=== PATIENT | female | born 1965 | race Caucasian/White ===

== ENCOUNTER 2018-09-25 10:42 | Emergency (ER) | payer BC ==
--- NOTE | 2018-09-25 11:13 | UC ---
Hip/Pelvis Pain - HPI Summary HPI Summary: 52 yo fell from horse 2 days ago; complains of right lateral hip discomfort. ALSO: felt faint and nauseated that evening; near syncopal episode. Could still hear family talking to her but felt as if blood was "leaving head." When fell hit head slightly but was wearing a helmet. No previous history of these complaints. Nurse's note reviewed: Pt fell off a horse 2 days ago c/o R hip pain and intermittment dizziness, and nausea. Pt states did hit head but denies LOC. Some neck pain reported. - History Of Current Complaint Stated Complaint: HIP INJURY Time Seen by Provider: 09/25/18 10:46 Hx Obtained From: Patient - Allergies/Home Medications Allergies/Adverse Reactions: Allergies Allergy/AdvReac Type Severity Reaction Status Date / Time No Known Allergies Allergy Verified 09/25/18 11:05 Home Medications: Home Medications Ibuprofen TAB* [Motrin TAB* 800 MG] 800 mg PO ONCE 09/25/18 [History Confirmed 09/25/18] Sertraline* [Zoloft*] 50 mg PO DAILY 09/25/18 [History Confirmed 09/25/18] PMH/Surg Hx/FS Hx/Imm Hx - Additional Past Medical History Additional PMH: PMH: no significant admissions or surgeries. 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 Previously Healthy: Yes - Surgical History Surgical History: Yes Surgery Procedure, Year, and Place: LAPAROSCOPY - ENDOMETRIOSIS. Rt BREAST - W / BX CLIP PLACED - BENIGN Review of Systems All Other Systems Reviewed And Are Negative: Yes Constitutional: Negative: Fever Skin: Positive: Negative Eyes: Positive: Negative ENT: Positive: Negative Respiratory: Positive: Negative Cardiovascular: Positive: Negative Gastrointestinal: Positive: Negative Genitourinary: Positive: Negative Motor: Positive: Other - pain with ambulation over right hip Neurovascular: Positive: Other - near syncope when standing; not now Musculoskeletal: Positive: Myalgia - left cervical; no spine bone pain Neurological: Positive: Other - felt nauseated; felt as if she was going to faint. Negative: Headache Physical Exam - Summary Physical Exam Summary: Is the patient is in mild discomfort with ambulation, primarily at the right hip. She is not orthostatic. Orthostatic measurements suggested possible mild dehydration, although her specific gravity of her urine does not reflect this. A neurologic exam shows a negative Romberg and is normal. Abdominal exam shows a slight discomfort in the right upper quadrant. Bowel sounds are present and abdomen soft. Examination of the spine shows no bony tenderness in the cervical or thoracic region. Triage Information Reviewed: Yes Eye Exam: Normal ENT Exam: Normal Dental Exam: Normal Neck exam: Normal Neck: Positive: Supple, Nontender Respiratory Exam: Normal Respiratory: Positive: Chest non-tender, Lungs clear, Normal breath sounds Cardiovascular Exam: Normal Cardiovascular: Positive: RRR, No Murmur Abdominal Exam: Normal Abdomen Description: Positive: No Organomegaly, Soft. Negative: CVA Tenderness (R), CVA Tenderness (L), Distended, Guarding, McBurney's Point Tenderness, Peritoneal Signs Musculoskeletal Exam: Normal Neurological Exam: Normal Psychological Exam: Normal Skin Exam: Normal Hip Injury Course/Dx - Course Course Of Treatment: 52 yo fell from horse 2 days ago; complains of right lateral hip discomfort. ALSO: felt faint and nauseated that evening; near syncopal episode. Could still hear family talking to her but felt as if blood was "leaving head." When fell hit head slightly but was wearing a helmet. No previous history of these complaints. Hip x ray: Normally located RIGHT hip. Negative for RIGHT proximal femur or pelvic fracture or. pelvic joint diastases. The sacral ala appear symmetric. Superficial soft tissue edema superficial to the LEFT pelvis and hip noted corresponding with reported bruising." Orthostatic measurements: normal. 52 yo fell from horse 2 days ago ; complains of right lateral hip discomfort. ALSO: felt faint and nauseated that evening; near syncopal episode. Could still hear family talking to her but felt as if blood was "leaving head." When fell hit head slightly but was wearing a helmet. No previous history of these complaints. My diagnosis is right contusion; mild closed head trauma without loss of consciousness. It is noteworthy that the patient's said that the patient had a previous history of endometriosis and would get diarrhea and dizziness with the pain at that time. Her near syncopal episode may be related to a vagal response to pain. I discussed her condition with the patient and her family. She noticed follow-up if there are any new symptoms of near syncope or new pain or disability. Medications reviewed. Blood pressure status reviewed. Patient is urgent/emergent causing elevation. Not on medication. - Differential Dx/Diagnosis Differential Diagnosis/HQI/PQRI: Contusion, Sprain, Strain, Other - concussion Provider Diagnosis: Contusion, hip Discharge - Sign-Out/Discharge Documenting (check all that apply): Patient Departure All imaging exams completed and their final reports reviewed: Yes - Discharge Plan Condition: Stable Disposition: HOME Patient Education Materials: Contusion in Adults (ED) Referrals: Jessie Morrow MD [Primary Care Provider] - Additional Instructions: WE DISCUSSED: PLEASE SEEK CARE AT THE EMERGENCY DEPARTMENT IF SYMPTOMS WORSEN OR IF NEW SYMPTOMS DEVELOP. FOLLOW UP WITH YOUR PRIMARY CARE PHYSICIAN IF CONDITION CONTINUES BEYOND 3 DAYS WITHOUT IMPROVEMENT. We are open from 7 a.m. to 10 p.m. Call us with any questions or concerns. YOUR DIAGNOSIS IS: Right hip contusion; mild head injury; near fainting episode , possibly related to pain; mild dehydration. YOUR PRESCRIPTION RECOMMENDATION IS:none For pain: Ibuprofen (Motrin and other brand names) 400-600mg PLUS acetaminophen (Tylenol and other brand names) 500mg - 1000mg every 8 hours. Maximum is 3 doses a day. If this dosage is required for more than 5 days, you should re-check with your doctor. The combination of these two over-the- counter medications can be more effective than each one taken alone. Please check with the pharmacist if you have questions about your allergies to these medications. - Billing Disposition and Condition Condition: STABLE Disposition: Home
[2018-09-25 11:49] VITALS: BP 135/85
== END 2018-09-25 12:15 | disposition home or self-care (01) ==
LOC: UCEAST 10:42
DX: S70.01XA Contusion of right hip, initial encounter (principal); V80.010A Animal-rider injured by fall from or being thrown from horse in noncollision accident, initial encounter; Y93.52 Activity, horseback riding; Y92.9 Unspecified place or not applicable
CPT/HCPCS: 81003; 99212; G0463